=== PATIENT | male | born 1980 | race Caucasian/White ===

== ENCOUNTER 2017-04-27 10:56 | Emergency (ER) | payer BC ==
[~2017-04-27] VITALS: Ht 182.9 cm; Wt 101.0 kg
[2017-04-27 11:03] VITALS: Ht 182.9 cm; Wt 101.0 kg
--- NOTE | 2017-04-27 11:21 | EMERGENCY ROOM VISIT NOTE ---
History First contact with patient: 11:08 Chief Complaint: GROIN PAIN Stated Complaint: HERNIA IN GROIN AREA History of Present Illness The patient is a 36 year old male who presents to the Emergency Room via private vehicle with complaints of "hernia in groin area ankle. The patient states that he was lifting a bag of sand/concrete a few days ago, and noticed a bulging of his left lower inferior quadrant/inguinal region. He states that he believes he has a hernia here. He denies any pain but notes more like a nagging sensation. He can feel a gurgling sensation to the area at times. He denies any fevers or chills. He has been having, this without difficulty. Review of Systems A complete 6-point Review of Systems was discussed with the patient, with pertinent positives and negatives listed in the History of Present Illness. All remaining Review of Systems questions can be considered negative unless otherwise specified. Past Medical/Surgical History Hernia Family History No pertinent Social History Smoking Status: Never Smoker Pt. lives locally with family Current/Historical Medications No Active Prescriptions or Reported Meds Physical Exam Vital Signs Date Time Temp Pulse Resp B/P (MAP) Pulse Ox O2 Delivery O2 Flow Rate FiO2 04/27/17 13:43 63 18 136/80 99 04/27/17 13:04 71 18 152/84 100 Room Air Physical Exam VITAL SIGNS - Vital signs and nursing notes were reviewed. Stable. GENERAL - 36-year-old male appearing his stated age who is in no acute distress. Communicates well with provider and answers questions appropriately. SKIN - Without rashes. HEAD - NC/AT. LUNGS - Chest wall symmetric without accessory muscle use, intercostals retractions, or central cyanosis. Normal vesicular breath sounds CTA B/L. No wheezes, rales, or rhonchi appreciated. CARDIAC - RRR with S1/S2. No murmur, rubs, or gallops appreciated. ABDOMEN - Abdominal contour normal without pulsations or visible masses. BS normoactive all four quadrants. There is LLQ abdominal edema/ inguinal buldge. No tenderness, hepatosplenomegaly, or ascites noted. Medical Decision & Procedures ER Provider Diagnostic Interpretation: ABDOMEN LIMITED (US) CLINICAL HISTORY: 36 years-old Male presenting with Left inguinal/inferior lower quadrant hernia. TECHNIQUE: Real-time grayscale ultrasound imaging of the left inguinal region was performed for a focused examination at the site of clinical interest. COMPARISON: None. FINDINGS: Hypoechoic material consistent with intra-abdominal fat appears to protrude through a defect in the peritoneum along the proximal aspect of the inguinal canal. This herniation is reducible with pressure. No associated fluid. No sonographic evidence of bowel within the hernia sac. IMPRESSION: 1. Reducible fat-containing left inguinal hernia. Electronically signed by: Tito Irene M.D. 04/27/2017 12:39 PM Dictated Date/Time: 04/27/2017 12:37 PM Laboratory Results 04/27/17 12:10 Red Blood Count 5.18, Mean Corpuscular Volume 86.5, Mean Corpuscular Hemoglobin 30.1, Mean Corpuscular Hemoglobin Concent 34.8, Mean Platelet Volume 9.5, Neutrophils (%) (Auto) 67.8, Lymphocytes (%) (Auto) 23.2, Monocytes (%) (Auto) 6.8, Eosinophils (%) (Auto) 1.6, Basophils (%) (Auto) 0.4, Neutrophils # (Auto) 3.76, Lymphocytes # (Auto) 1.29, Monocytes # (Auto) 0.38, Eosinophils # (Auto) 0.09, Basophils # (Auto) 0.02 04/27/17 12:10 Test 04/27/17 12:10 White Blood Count 5.55 K/uL (4.8-10.8) Red Blood Count 5.18 M/uL (4.7-6.1) Hemoglobin 15.6 g/dL (14.0-18.0) Hematocrit 44.8 % (42-52) Mean Corpuscular Volume 86.5 fL (80-100) Mean Corpuscular Hemoglobin 30.1 pg (25-34) Mean Corpuscular Hemoglobin Concent 34.8 g/dl (32-36) Platelet Count 177 K/uL (130-400) Mean Platelet Volume 9.5 fL (7.4-10.4) Neutrophils (%) (Auto) 67.8 % Lymphocytes (%) (Auto) 23.2 % Monocytes (%) (Auto) 6.8 % Eosinophils (%) (Auto) 1.6 % Basophils (%) (Auto) 0.4 % Neutrophils # (Auto) 3.76 K/uL (1.4-6.5) Lymphocytes # (Auto) 1.29 K/uL (1.2-3.4) Monocytes # (Auto) 0.38 K/uL (0.11-0.59) Eosinophils # (Auto) 0.09 K/uL (0-0.5) Basophils # (Auto) 0.02 K/uL (0-0.2) RDW Standard Deviation 40.9 fL (36.4-46.3) RDW Coefficient of Variation 12.9 % (11.5-14.5) Immature Granulocyte % (Auto) 0.2 % Immature Granulocyte # (Auto) 0.01 K/uL (0.00-0.02) Hypersegmented Polys 1+ Platelet Estimate NORMAL Anion Gap 6.0 mmol/L (3-11) Est Creatinine Clear Calc Drug Dose 129.6 ml/min Estimated GFR () 116.6 Estimated GFR (Non- 100.6 BUN/Creatinine Ratio 13.5 (10-20) Calcium Level 9.0 mg/dl (8.5-10.1) Total Bilirubin 0.6 mg/dl (0.2-1) Aspartate Amino Transf (AST/SGOT) 26 U/L (15-37) Alanine Aminotransferase (ALT/SGPT) 63 U/L (12-78) Alkaline Phosphatase 64 U/L (45-117) Total Protein 7.9 gm/dl (6.4-8.2) Albumin 4.1 gm/dl (3.4-5.0) Globulin 3.8 gm/dl (2.5-4.0) Albumin/Globulin Ratio 1.1 (0.9-2) Medical Decision Patient was seen and evaluated as above. After obtaining a thorough history and physical examination IV access was initiated, and an ultrasound was obtained of the suspected hernia region. Ultrasound reveals a reducible, fat- containing hernia. Lab work is unremarkable. He appears stable from patient management. The patient called his uncle who is a drain tile machine operator and was able to help arrange him with a Gen. surgery appointment for Wednesday of this coming week and surgery on Wednesday. I believe this is reasonable. I do not believe that emergent surgery today is warranted. Patient was educated upon management, educated upon worrisome symptoms in which to return, had questions answered prior to discharge, and was discharged home in good condition. In evaluation treatment this patient following differential diagnoses were entertained: Incarcerated hernia, reducible fat-containing hernia, bowel containing hernia, abscess, among others. Impression Primary Impression: Inguinal hernia Departure Information Dispostion Home / Self-Care Condition GOOD Prescriptions No Active Prescriptions or Reported Meds Referrals No Doctor, Assigned (PCP) Berto Goel M.D. Ramondelli, Salvatore, M.D. Yang, Chunjie ., MD Patient Instructions My [facility] Additional Instructions You have been treated in the Emergency Department your left lower quadrant abdominal bulge. Laboratory results and imaging studies have ruled out any emergent causes for your abdominal symptoms which would warrant admission or surgery emergently or today. For pain control, you can use the following [id number] medicines (if >12 yo): - Regular strength (325mg/tab) Tylenol (acetaminophen) 2 tabs every 4-6 hours as needed. Do not exceed 12 tablets in a 24 hour period. Avoid taking more than 3 grams (3000 mg) of Tylenol per day. This includes any other sources of acetaminophen you may take on a regular basis. - Regular strength (200 mg/tab) Advil (ibuprofen) 1-2 tabs every 4-6 hours as needed. Do not exceed a dose of 3200 mg per day. Drink plenty of water and stay well hydrated. As with any trip to the Emergency Department, you should follow-up with your Primary Care Provider from today's visit. I do recommend either calling the general surgeons listed in the paperwork here today, or following up back home with a surgeon of your choice. Please be advised during work that if you experience increased pain, he should stop doing that activity, and go to the emergency Department for further evaluation and management. Fortunately the hernia at this time is only fat- containing, and is actually reducible, meaning that it goes back in where should with a little help. The concern is that at times this could now turned to not only fat outside but bowel as well/intestine and this could cause more problems. For that reason I recommend decreasing the amount of lifting, as well as following up with a surgeon as soon as possible for further evaluation and management. Return to the emergency department if your symptoms persist despite treatment plan outlined above or if the following symptoms occur: increased fevers, chills , worsening nausea/vomiting, blood in your stool or urine. Please return with any new/concerning symptoms. ABDOMEN LIMITED (US) CLINICAL HISTORY: 36 years-old Male presenting with Left inguinal/inferior lower quadrant hernia. TECHNIQUE: Real-time grayscale ultrasound imaging of the left inguinal region was performed for a focused examination at the site of clinical interest. COMPARISON: None. FINDINGS: Hypoechoic material consistent with intra-abdominal fat appears to protrude through a defect in the peritoneum along the proximal aspect of the inguinal canal. This herniation is reducible with pressure. No associated fluid. No sonographic evidence of bowel within the hernia sac.
--- NOTE | 2017-04-27 12:41 | DIAGNOSTIC IMAGING REPORT ---
ABDOMEN LIMITED (US) CLINICAL HISTORY: 36 years-old Male presenting with Left inguinal/inferior lower quadrant hernia. TECHNIQUE: Real-time grayscale ultrasound imaging of the left inguinal region was performed for a focused examination at the site of clinical interest. COMPARISON: None. FINDINGS: Hypoechoic material consistent with intra-abdominal fat appears to protrude through a defect in the peritoneum along the proximal aspect of the inguinal canal. This herniation is reducible with pressure. No associated fluid. No sonographic evidence of bowel within the hernia sac. IMPRESSION: 1. Reducible fat-containing left inguinal hernia. Electronically signed by: Tito Irene M.D. 04/27/2017 12:39 PM Dictated Date/Time: 04/27/2017 12:37 PM
[2017-04-27 13:07] LABS: BUN/CREATININE RATIO 13.5 (10-20); CREATININE 0.96 mg/dl (0.60-1.40); POTASSIUM 3.8 mmol/L (3.5-5.1)
[2017-04-27 13:09] LABS: ALB/GLOB RATIO 1.1 (0.9-2); HEMATOCRIT 44.8 % (42-52); MEAN CELL VOLUME 86.5 fL (80-100); MEAN CORPUSCULAR HEMOGLOBIN 30.1 pg (25-34); MEAN CORPUSCULAR HGB CONC 34.8 g/dl (32-36); MEAN PLATELET VOLUME 9.5 fL (7.4-10.4); PLATELET COUNT 177 K/uL (130-400); RED BLOOD COUNT 5.18 M/uL (4.7-6.1); WHITE BLOOD COUNT 5.55 K/uL (4.8-10.8)
[2017-04-27 13:11] LABS: BASO % 0.4 %; BASO ABS # 0.02 K/uL (0-0.2); COMPLETE YES; EOS % 1.6 %; HYPERSEGMENTED POLYS 1+; IG% 0.2 %; LYMPH % 23.2 %; LYMPH ABS # 1.29 K/uL (1.2-3.4); MONO % 6.8 %; NEUT % 67.8 %; PLT ESTIMATE NORMAL
[2017-04-27 13:43] VITALS: BP 136/80; PULSE 63; O2SAT 99
== END 2017-04-27 13:45 | disposition home or self-care (01) ==
LOC: C.EDB 11:00
DX: K40.90 Unilateral inguinal hernia, without obstruction or gangrene, not specified as recurrent (principal)